=== PATIENT | male | born 1970 | race American Indian/Alaskan Native ===

== ENCOUNTER 2018-05-23 15:11 | Emergency (ER) | payer BC ==
[2018-05-23 15:20] VITALS: BP 145/81
[2018-05-23] MEDS ORDERED: MOTRIN PO ONE (20:17)
[2018-05-23] MEDS ORDERED: KEFLEX PO ONE (20:17)
[2018-05-23] MEDS ORDERED: BOOSTRIX IM ONE (20:17)
--- NOTE | 2018-05-23 20:17 | Emergency Department Report ---
ED General Adult HPI - General Chief complaint: Neck Pain/Injury Stated complaint: NECK/ARM INJURY Time Seen by Provider: 05/23/18 19:54 Source: patient Mode of arrival: Ambulatory Limitations: No Limitations - Related Data Previous Rx's Medication Instructions Recorded Last Taken Type Acetaminophen/Codeine [Tylenol 1 tab PO Q6H PRN #12 tab 05/23/18 Unknown Rx /Codeine # 3 tab] Cephalexin [Keflex] 500 mg PO Q8H 7 Days #21 capsule 05/23/18 Unknown Rx Cyclobenzaprine [Flexeril] 10 mg PO TID PRN #15 tablet 05/23/18 Unknown Rx Ibuprofen [Motrin] 600 mg PO Q8H PRN #15 tablet 05/23/18 Unknown Rx Allergies Allergy/AdvReac Type Severity Reaction Status Date / Time No Known Allergies Allergy Unverified 05/23/18 15:20 ED Review of Systems ROS: Stated complaint: NECK/ARM INJURY Other details as noted in HPI ED Past Medical Hx - Past Medical History Previous Medical History?: No - Surgical History Past Surgical History?: No - Social History Smoking Status: Current Every Day Smoker - Medications Home Medications: Home Medications Medication Instructions Recorded Confirmed Last Taken Type Acetaminophen/Codeine [Tylenol 1 tab PO Q6H PRN #12 tab 05/23/18 Unknown Rx /Codeine # 3 tab] Cephalexin [Keflex] 500 mg PO Q8H 7 Days #21 capsule 05/23/18 Unknown Rx Cyclobenzaprine [Flexeril] 10 mg PO TID PRN #15 tablet 05/23/18 Unknown Rx Ibuprofen [Motrin] 600 mg PO Q8H PRN #15 tablet 05/23/18 Unknown Rx ED Physical Exam - General Limitations: No Limitations ED Course Vital Signs 05/23/18 05/23/18 15:17 20:42 Temperature 98.6 F Pulse Rate 90 Respiratory 16 18 Rate Blood Pressure 145/81 O2 Sat by Pulse 100 Oximetry - Laceration /Wound Repair Right Distal Volar Arm Wound Location: upper extremity (Posterior right distal forearm) Wound Length (cm): 0 (0.5) Wound's Depth, Shape: superficial, linear Wound Explored: clean Irrigated w/ Saline (ccs): 200 Betadine Prep?: Yes Volume Anesthetic (ccs): 0 Wound Debrided: moderate Wound Repaired With: Steri-strips Number of Sutures: 5 Layer Closure?: No Sterile Dressing Applied?: Yes (Boostrix 0.5 mL given) ED Medical Decision Making - Radiology Data Radiology results: report reviewed Patient has x-ray of right hand and C-spine which was dictated by radiologist and report reviewed by myself. Please see below for details on reports Patient: MAXX CAMPBELL MR#: [id number] : 1970 Acct:[id number] Age/Sex: 47 / M ADM Date: 05/23/18 Loc: ED Attending Dr: Ordering Physician: KARLI ALVARES Date of Service: 05/23/18 Procedure(s): XR hand 3+V RT Accession Number(s): [id number] cc: KARLI ALVARES Fluoro Time In Minutes: FINAL REPORT PROCEDURE: XR HAND 3+V RT TECHNIQUE: RIGHT hand radiographs, AP, lateral, and oblique views. CPT 07957-XR HISTORY: rt hand injury with pain COMPARISON: No prior studies are available for comparison. FINDINGS: Fracture (s) and/or Dislocation(s): None . Alignment: Normal . Joint space(s): Normal . Soft tissues: Normal . Bone mineralization: Mild degree osteophyte formation is noted involving radio carpal joint. Foreign bodies: None . IMPRESSION: No acute abnormality. Mild degree osteoarthritis. Transcribed By: [facility] [place]ictated By: MAMADOU KIM Electronically Authenticated By: MAMADOU KIM Signed Date/Time: 05/23/182052 DD/ 52 TD/TT: 05/23/182052 Patient: MAXX CAMPBELL MR#: [id number] : 1970 Acct:[id number] Age/Sex: 47 / M ADM Date: 05/23/18 Loc: ED Attending Dr: Ordering Physician: KARLI ALVARES Date of Service: 05/23/18 Procedure(s): XR spine cervical 2-3V Accession Number(s): [id number] cc: KARLI ALVARES Fluoro Time In Minutes: FINAL REPORT PROCEDURE: XR SPINE CERVICAL 2-3V TECHNIQUE: Cervical spine radiographs, AP, lateral, and open-mouth odontoid views. CPT 23841 HISTORY: injury with c spine pain COMPARISON: No prior studies are available for comparison. FINDINGS: Prevertebral soft tissues: Normal . Alignment: There is straightening of the cervical spine. Vertebral body heights/Disk spaces: Narrowing of intervertebral disc spaces noted from C4-5 to C6-7 associated with mild degree marginal osteophyte formation.. Fracture(s): None . Facets: Normal . Bone mineralization: Normal . IMPRESSION: No acute fracture Cervical spondylosis from C4-5 to C6-7 Straightening of the cervical spine is most likely secondary to spasm Transcribed By: [facility] Dictated By: MAMADOU KIM Electronically Authenticated By: MAMADOU KIM Signed Date/Time: 05/23/182051 DD/ 51 TD/TT: 05/23/182051 - Medical Decision Making This is a 47-year-old male presents to the hospital after having injury when he said heavy boxes at work fell on him injuring his neck would present to the neck on the right side, right shoulder and right arm with a cut to his right forearm. Patient reports pain but denies any head injury or loss of consciousness and here to be evaluated. Incident occured at 10am this morning This patient was seen by myself and examined and she has mild swelling to right hand with minimal pain on range of motion but no restriction in movement, no erythema, 0.5 cm superficial laceration to distal right forearm, tenderness to palpate the C-spine with bruising noted to neck on the right side. He has no neurological deficits and is able to move his neck without any difficulties. X- ray of right hand dictated by radiologist and report reviewed by myself .no fracture or dislocation but minimal soft tissue swelling seen on x-ray. X-ray of C-spine shows spondylosis and spasm without any acute fracture or dislocation. Please refer to radiology report for details. I discussed the patient her x-ray results and he voiced understanding. She is feeling better after Motrin. A/P 1: Neck spasm :800 mg by mouth given in emergency room. We'll discharge home on Flexeril. Xray negative 2: Arthralgia right hand-better after given Motrin and Tylenol 3 3: Superficial laceration to right forearm-Please refer to procedure notes for care of laceration. Boostrix 05. cc given and started on keflex 4 Mild Contusion RT Hand- Rice therapy explained. Xray negative Patient educated on medication, Rice therapy, diagnosis, x-ray reports and treatment plan and if he continues to have pain she needs to follow-up with orthopedic doctor. Patient discharged home in stable condition to follow up with orthopedic doctor and PCP in 3 days and/or to return to the emergency room if his condition worsens. His vital signs and he is afeb. He is stable and feels better after pain medication - Differential Diagnosis fracture, subluxation, muscle strain, contusion, spasm, arthralgia Critical care attestation.: If time is entered above; I have spent that time in minutes in the direct care of this critically ill patient, excluding procedure time. ED Disposition Clinical Impression: Neck muscle spasm, Neck pain, acute, Arthralgia of multiple sites Laceration of right forearm Qualifiers: Encounter type: initial encounter Qualified Code(s): S51.811A - Laceration without foreign body of right forearm, initial encounter Contusion of right hand Qualifiers: Encounter type: initial encounter Qualified Code(s): S60.221A - Contusion of right hand, initial encounter Disposition: - TO HOME OR SELFCARE Is pt being admited?: No Does the pt Need Aspirin: No Condition: Stable Instructions: Muscle Spasm (ED), Arthralgia (ED), Laceration (ED), Skin Adhesive Care (ED), Contusion in Adults (ED), RICE Therapy (ED) Additional Instructions: Please follow up with primary care as recommended Increase fluid intake Take medication as prescribed please do not drive or operate heavy machinery while taking Flexeril or Tylenol No. 3 of these medication causes drowsiness. Referred to discharge instruction on splint care. Referred to discharge instruction in Rice therapy. These follow-up with orthopedic doctor as instructed. Please return to emergency room in 7-10 days to have stitches removed. Please keep affected area clean and dry Prescriptions: Acetaminophen/Codeine [Tylenol /Codeine # 3 tab] 1 tab PO Q6H PRN #12 tab PRN Reason: severe pain Cephalexin [Keflex] 500 mg PO Q8H 7 Days #21 capsule Cyclobenzaprine [Flexeril] 10 mg PO TID PRN #15 tablet PRN Reason: Muscle Spasm Ibuprofen [Motrin] 600 mg PO Q8H PRN #15 tablet PRN Reason: Pain Referrals: PRIMARY CARE, [Primary Care Provider] - 3-5 Days Forms: Work/School Release Form(ED)
--- NOTE | 2018-05-23 20:56 | XRay Report ---
FINAL REPORT PROCEDURE: XR SPINE CERVICAL 2-3V TECHNIQUE: Cervical spine radiographs, AP, lateral, and open-mouth odontoid views. CPT 47193 HISTORY: injury with c spine pain COMPARISON: No prior studies are available for comparison. FINDINGS: Prevertebral soft tissues: Normal . Alignment: There is straightening of the cervical spine. Vertebral body heights/Disk spaces: Narrowing of intervertebral disc spaces noted from C4-5 to C6-7 associated with mild degree marginal osteophyte formation.. Fracture(s): None . Facets: Normal . Bone mineralization: Normal . IMPRESSION: No acute fracture Cervical spondylosis from C4-5 to C6-7 Straightening of the cervical spine is most likely secondary to spasm
--- NOTE | 2018-05-23 20:57 | XRay Report ---
FINAL REPORT PROCEDURE: XR HAND 3+V RT TECHNIQUE: RIGHT hand radiographs, AP, lateral, and oblique views. CPT 57423-GB HISTORY: rt hand injury with pain COMPARISON: No prior studies are available for comparison. FINDINGS: Fracture (s) and/or Dislocation(s): None . Alignment: Normal . Joint space(s): Normal . Soft tissues: Normal . Bone mineralization: Mild degree osteophyte formation is noted involving radio carpal joint. Foreign bodies: None . IMPRESSION: No acute abnormality. Mild degree osteoarthritis.
== END 2018-05-23 22:08 | disposition home or self-care (01) ==
LOC: ED 15:11
DX: S51.811A Laceration without foreign body of right forearm, initial encounter (principal); S60.221A Contusion of right hand, initial encounter; M62.838 Other muscle spasm; M25.50 Pain in unspecified joint; M54.2 Cervicalgia; F17.200 Nicotine dependence, unspecified, uncomplicated; X58.XXXA Exposure to other specified factors, initial encounter; Y93.89 Activity, other specified; Y92.89 Other specified places as the place of occurrence of the external cause; Y99.8 Other external cause status
CPT/HCPCS: 72040; 90471; 90715